=== PATIENT | male | born 1955 | race Caucasian/White ===

== ENCOUNTER 2020-06-01 07:12 | Day surgery (SDC) | payer BC ==
[~2020-06-01 07:12] MED LIST: Lactated Ringers 1,000 ML IV SCH
[2020-06-01] MEDS ORDERED: Midazolam 1 MG/ML 2 ML SDV ONE (08:18)
[2020-06-01] MEDS ORDERED: fentaNYL 100 MCG/2 ML SDV ONE (08:18)
[2020-06-01] MEDS ORDERED: Propofol 200 MG/20 ML SDV ONE (08:19)
--- NOTE | 2020-06-01 10:36 | OR ---
DATE OF SURGERY: 06/01/2020. REFERRING PROVIDER: Yoly Caro MD PRE-OPERATIVE DIAGNOSIS: Screening colonoscopy. Last colonoscopy was 08/2009. The patient denies any family history of colon cancer or significant colon polyps. POST-OPERATIVE DIAGNOSES: 1. Mild inflammation of the ileocecal valve prominence. Cold biopsy x2 bites taken. 2. Normal-appearing terminal ileum. 3. Otherwise normal colon without any evidence for inflammation or polyps. PROCEDURE: Colonoscopy with biopsy x1 site using cold forceps. SURGEON: Igor Morales M.D. ANESTHESIA: Monitored anesthesia care. BOWEL PREP: Good. Omari is a 64-year-old male who was brought to the endoscopy suite after discussing risks and benefits of the procedure. Informed consent was obtained for conscious sedation and colonoscopy with or without biopsy and/or polypectomy. We also discussed possibility of missed lesions. Pre-procedure exam was unremarkable. IV, oxygen, and monitors were placed. The patient was placed in the left lateral decubitus position. Sedation was administered and a digital rectal exam was performed and unremarkable. Colonoscope was passed into the rectum and slowly advanced all the way to the cecum. Cecum was viewed and photographed. Ileocecal valve was intubated and terminal ileum was normal in appearance. Within the cecum, the ileocecal valve prominence did appear mildly inflamed with questionable small superficial ulcerations. Cold biopsy x2 bites taken. The colonoscope was slowly withdrawn and the mucosa was closely observed in a direct circumferential manner. The ascending colon was unremarkable. The transverse colon was unremarkable. The descending colon was unremarkable. The sigmoid colon was unremarkable. Retroflexion was performed and rectal mucosa was unremarkable. Scope was removed. The patient tolerated the procedure well. The patient was monitored until that baseline status. Discharge instructions were reviewed and the patient was discharged in good condition. COMPLICATIONS: None. TOTAL TIME: 22 minutes. ESTIMATED BLOOD LOSS: Less than 1 mL. RECOMMENDATIONS/FOLLOW-UP: We will await results of path report to determine ideal followup interval. The patient can go ahead and resume his Coumadin tonight and his aspirin tomorrow. I would like to kindly thank Dr. Caro for this referral. DMB: 06/01/2020 09:10:01 MODL: 06/01/2020 10:06:42 /[id number]
== END 2020-06-01 09:35 | disposition home or self-care (01) ==
LOC: VM.SDS 07:12
PROVIDERS: ATTEND Family Medicine
DX: Z12.11 Encounter for screening for malignant neoplasm of colon (principal); K63.3 Ulcer of intestine; E78.00 Pure hypercholesterolemia, unspecified; G62.9 Polyneuropathy, unspecified; G47.33 Obstructive sleep apnea (adult) (pediatric); E78.5 Hyperlipidemia, unspecified; Z01.812 Encounter for preprocedural laboratory examination; Z20.822 Contact with and (suspected) exposure to COVID-19; Z79.82 Long term (current) use of aspirin; Z79.899 Other long term (current) drug therapy; Z98.890 Other specified postprocedural states
CPT/HCPCS: 00811; 36415; 85610; J2250; J2704; J3010; J7120; U0002